=== PATIENT | female | born 1955 | race Caucasian/White ===

== ENCOUNTER 2019-12-10 10:39 | Outpatient (CLI) | payer MEDICARE ==
[2019-12-10 11:10] LABS: #Basophils 0.1 thou/uL (0.0-0.2); #Eosinphils 0.2 thou/uL (0.0-0.7); #Lymphocytes 2.2 thou/uL (1.20-3.40); #Monocytes 0.6 thou/uL (0.11-0.59); #Neutrophils 4.7 thou/uL (1.40-6.50); %Basophils 1.3 % (0.0-1.0); %Eosinophils 2.3 % (0.0-10.0); %Monocytes 7.4 % (0.0-10.0); Hemoglobin 13.9 g/dL (12.0-16.0); Mean Corpuscular HGB CONC 31.1 g/dL (32.0-36.0); Mean Corpuscular Hemoglobin 28.2 pg (27.0-31.0); Mean Corpuscular Volume 90.8 fL (78.0-98.0); Mean Platelet Volume 9.2 fL (7.4-10.4); Platelet Count 252 thou/uL (130-400); RBC Distribution Width 11.8 % (11.5-14.5); Red Blood Cell (RBC) Count 4.92 mill/uL (4.20-5.40); White Blood Cell (WBC) Count 7.7 thou/uL (4.8-10.8)
[2019-12-10 11:13] LABS: Anion Gap 13 mmol/L (10-20); BUN (Urea Nitrogen) 29 mg/dL (9.8-20.1); Calc. Creatinine Clearance 0 mL/min (70-130); Calcium 9.8 mg/dL (7.8-10.44); Carbon Dioxide 26 mmol/L (23-31); Chloride 104 mmol/L (98-107); Estimated GFR-MDRD 43; Glucose 117 mg/dL (80-115); Phosphorus 3.6 mg/dL (2.3-4.7); Potassium 4.1 mmol/L (3.5-5.1); Sodium 139 mmol/L (136-145)
--- NOTE | 2019-12-10 11:52 | ULT ---
BILATERAL RENAL ULTRASOUND: HISTORY: Chronic renal disease. FINDINGS: The right kidney measures 7.1 cm in length and the left kidney measures 9.2 cm in length. No focal m ass or hydronephrosis is seen on either side. The urinary bladder is not satisfactorily distended. IMPRESSION: No evidence of high-grade obstruction. POS: [facility]
[2019-12-10 13:22] LABS: Bilirubin Negative (Negative); Blood, Urine Negative (Negative); Clarity Clear (Clear); Glucose, Urine (Dipstick) Negative (Negative); Leukocyte Negative (Negative); Nitrite Negative (Negative); Protein, Urine (Dipstick) Negative (Neg-Trace); Urobilinogen 0.2 mg/dL (Less than 2)
[2019-12-10 17:40] LABS: Creatinine, Urine 32.08 mg/dL (47-110); Protein, Urine Random Quant Less than 10 mg/dL (1-14)
[2019-12-12 16:51] LABS: ANA Symphony (Qualitative) Negative (Negative); ANA Symphony (Quantitative) 0.2 Ratio (< 0.7 Negative); dsDNA IgG Antibody 0.5 IU/mL (<10 Negative)
== END 2019-12-10 10:40 | disposition home or self-care (01) ==
LOC: MADLAB 10:39
PROVIDERS: ATTEND Internal Medicine Nephrology
DX: I12.9 Hypertensive chronic kidney disease with stage 1 through stage 4 chronic kidney disease, or unspecified chronic kidney disease (principal); N18.3 Chronic kidney disease, stage 3 (moderate)
CPT/HCPCS: 36415; 76770; 80048; 81003; 82306; 82570; 83970; 84100; 84156; 85025; 86038; 86225

== ENCOUNTER 2021-11-13 11:34 | Emergency (ER) | payer MEDICARE ==
[2021-11-13 12:16] LABS: #Basophils 0.1 thou/uL (0.0-0.2); #Eosinphils 0.1 thou/uL (0.0-0.7); #Monocytes 0.5 thou/uL (0.11-0.59); #Neutrophils 5.9 thou/uL (1.40-6.50); %Basophils 0.8 % (0.0-1.0); %Eosinophils 1.2 % (0.0-10.0); %Lymphocytes 23.2 % (21.0-51.0); %Monocytes 5.8 % (0.0-10.0); Hemoglobin 14.4 g/dL (12.0-16.0); Mean Corpuscular HGB CONC 32.5 g/dL (32.0-36.0); Mean Corpuscular Volume 89.3 fL (78.0-98.0); Mean Platelet Volume 7.3 fL (7.4-10.4); Platelet Count 282 thou/uL (130-400); RBC Distribution Width 11.8 % (11.5-14.5); Red Blood Cell (RBC) Count 4.98 mill/uL (4.20-5.40); White Blood Cell (WBC) Count 8.5 thou/uL (4.8-10.8)
[2021-11-13] MEDS ORDERED: Iopamidol 370 76% 100 ML VIAL ONE (12:20)
[2021-11-13 12:33] LABS: ALT (SGPT) 19 U/L (8-55); AST (SGOT) 15 U/L (5-34); Albumin 4.6 g/dL (3.4-4.8); Alkaline Phosphatase 85 U/L (40-110); Anion Gap 18 mmol/L (10-20); BUN (Urea Nitrogen) 26 mg/dL (9.8-20.1); Bilirubin, Total 0.7 mg/dL (0.2-1.2); CK (CPK) 72 U/L (29-168); Calc. Creatinine Clearance 0 mL/min (70-130); Calcium 9.6 mg/dL (7.8-10.44); Carbon Dioxide 22 mmol/L (23-31); Chloride 103 mmol/L (98-107); Globulin 3.8 g/dL (2.4-3.5); Glucose 127 mg/dL (80-115); Potassium 3.9 mmol/L (3.5-5.1); Protein, Total 8.4 g/dL (5.8-8.1); Sodium 139 mmol/L (136-145)
[2021-11-13] MEDS ORDERED: Sodium Chloride 0.9% 500 ML ONE (13:15)
== END 2021-11-13 13:57 | disposition home or self-care (01) ==
LOC: MADERS 11:34
DX: M25.551 Pain in right hip (principal)
CPT/HCPCS: 72193; 80053; 82550; 85025; J7030; Q9967